=== PATIENT | female | born 1995 | race Caucasian/White ===

== ENCOUNTER 2017-01-09 03:34 | Emergency (ER) | payer SELFPAY ==
[~2017-01-09] VITALS: Ht 175.3 cm; Wt 204.1 kg
[2017-01-09] MEDS ORDERED: IPRATRPIUM/ALBUTEROL 0.5/2.5MG 3 ML NEBU. NEB ONE (04:30)
[2017-01-09] MEDS ORDERED: predniSONE 10 MG TABLET PO ONE (04:30)
[2017-01-09 04:41] VITALS: BP 167/97
[2017-01-09] MEDS ORDERED: PROAIR HFA8.5 GM INH (05:02)
[2017-01-09] MEDS ORDERED: PRED50TA PO (05:03)
--- NOTE | 2017-01-09 05:04 | PHYS DOC ---
Past Medical History Past Medical History: Asthma Past Surgical History: No Surgical History Alcohol Use: Rarely Drug Use: None Adult General Chief Complaint Chief Complaint: SORE THROAT HPI HPI This is a 21-year-old female who states she's had sore throat and sinus type congestion for the last several days and feeling that there is a "lump" in her throat as well. Patient is mildly obese and her mother and states she does not follow up with any physicians due to insurance issues. The mother does state that she has history of asthma but is not currently taking any medications. Patient is hypertensive on arrival. Mother was unaware that the patient had any issues with her blood pressure. Upon arrival, the patient is nontoxic and afebrile in appearance. She denies any significant chest pain or SOB. She denies any abdominal pain, nausea, or vomiting. Review of Systems Review of Systems Constitutional: Denies fever or chills [] Eyes: Denies change in visual acuity, redness, or eye pain [] HENT: Has nasal congestion, has sore throat [] Respiratory: Denies cough or shortness of breath [] Cardiovascular: No additional information not addressed in HPI [] GI: Denies abdominal pain, nausea, vomiting, bloody stools or diarrhea [] : Denies dysuria or hematuria [] Musculoskeletal: Denies back pain or joint pain [] Integument: Denies rash or skin lesions [] Neurologic: Denies headache, focal weakness or sensory changes [] Endocrine: Denies polyuria or polydipsia [] Current Medications Current Medications Current Medications Medications (Trade) Dose Ordered Sig/[facility] Start Time Stop Time Status Last Admin Dose Admin Albuterol/ Ipratropium (Duoneb) 3 ml 1X ONCE 01/09/17 04:30 01/09/17 04:59 DC 01/09/17 04:39 3 ML Prednisone (Prednisone) 50 mg 1X ONCE 01/09/17 04:30 01/09/17 04:59 DC 01/09/17 04:32 50 MG Allergies Allergies Allergies Coded Allergies Type Severity Reaction Last Updated Verified No Known Drug Allergies 01/09/17 No Physical Exam Physical Exam Constitutional: Well developed, well nourished, no acute distress, non-toxic appearance. [] HENT: Normocephalic, atraumatic, bilateral external ears normal, oropharynx moist, no oral exudates, nose normal. [] Eyes: PERRLA, EOMI, conjunctiva normal, no discharge. [] Neck: Normal range of motion, no tenderness, supple, no stridor. [] Cardiovascular:Heart rate regular rhythm, no murmur [] Lungs & Thorax: Bilateral breath sounds clear to auscultation [] Abdomen: Bowel sounds normal, soft, no tenderness, no masses, no pulsatile masses. [] Skin: Warm, dry, no erythema, no rash. [] Back: No tenderness, no CVA tenderness. [] Extremities: No tenderness, no cyanosis, no clubbing, ROM intact, no edema. [] Neurologic: Alert and oriented X 3, normal motor function, normal sensory function, no focal deficits noted. [] Psychologic: Affect normal, judgement normal, mood normal. [] Current Patient Data Vital Signs Vital Signs Date Time Temp Pulse Resp B/P (MAP) Pulse Ox O2 Delivery O2 Flow Rate FiO2 01/09/17 04:37 99 Room Air 01/09/17 03:57 97.9 98 20 220/117 (151) 97.9 EKG EKG [] Radiology/Procedures Radiology/Procedures One view of the chest as interpreted by me did not reveal an acute cardiopulmonary process. Course & Med Decision Making Course & Med Decision Making Pertinent Labs and Imaging studies reviewed. (See chart for details) This is a 21-year-old female who's having pharyngitis type symptoms and had a rapid strep taken that was negative. Patient was given a breathing treatment as well as a dose of oral steroids. I do not see an indication at this time to perform any laboratory workup. I did state the patient should have her blood pressure rechecked in the next several days by her primary care doctor. I'll be prescribing her a pro-air inhaler as well as prednisone for the next 5 days with strict instruction to return if her breathing should worsen despite using her inhaler. Patient was very agreeable with this plan. Primary care follow-up instructions were provided as well as resources for establishing with a primary care doctor. Return precautions were provided and acknowledged by the patient. Dragon Disclaimer Dragon Disclaimer This electronic medical record was generated, in whole or in part, using a voice recognition dictation system. Departure Departure Impression: Primary Impression: Bronchospasm Additional Impression: Sore throat Disposition: HOME, SELF-CARE Admitting Physician: Other Condition: STABLE Referrals: NO PCP (PCP) Patient Instructions: Bronchospasm, Adult Additional Instructions: Please follow up with your primary doctor in the next 2-3 for your sore throat and congestion. Take your steroids and albuterol inhaler as needed. Return to the ER if you develop any worsening of your symptoms or notice any worsening of your symptoms. Scripts Prednisone (PREDNISONE) 50 Mg Tablet 50 MG PO DAILY, #5 TAB Prov: SALVATORE SALCEDO DO 01/09/17 Albuterol Sulfate (PROAIR HFA INHALER) 8.5 Gm Hfa.aer.ad 1 PUFF INH PRN Q6HRS Y for SHORTNESS OF BREATH, #1 INHALER 0 Refills Prov: SALVATORE SALCEDO DO 01/09/17 Problem Qualifiers SALVATORE SALCEDO DO Jan 09, 2017 05:04
--- NOTE | 2017-01-09 07:31 | RAD ---
Indication: Shortness of breath. Time of exam 0429 hours. Comparison is made with prior exam from 06/19/2006. FINDINGS: The heart size is normal. The lungs are clear. No pleural effusion or pneumothorax is identified. The pulmonary vascularity is normal. IMPRESSION: No acute abnormality detected.
== END 2017-01-09 05:17 | disposition home or self-care (01) ==
LOC: ER 03:34
DX: J98.01 Acute bronchospasm (principal); J45.909 Unspecified asthma, uncomplicated; J02.9 Acute pharyngitis, unspecified
CPT/HCPCS: 71010; 94250; 94640; 99283; J7512; J7620

== ENCOUNTER 2017-04-20 15:03 | Emergency (ER) | payer SELFPAY ==
[~2017-04-20] VITALS: Ht 175.3 cm; Wt 195.0 kg
[~2017-04-20 15:03] MED LIST: PRED50TA PO; PROAIR HFA8.5 GM INH
--- NOTE | 2017-04-20 15:38 | EKG ---
[facility] [address] [place] [address] Test Date: 2017-04-20 Test Time: 15:17:59 Pat Name: GAGANDEEP ANN Department: Room: Gender: F Belt Maker: : 1995 Requested By: ANA MARIA VAZQUEZ Order Number: [id number] Reading MD: Tacho Patricia Measurements Intervals [place] Rate: 96 P: 43 MO: 146 QRS: 54 QRSD: 92 T: 25 QT: 330 QTc: 418 Interpretive Statements SINUS RHYTHM Electronically Signed On 04-26-2017 10:15:35 CDT by Tacho Patricia
[2017-04-20] MEDS ORDERED: DEXAMETHASONE 4 MG TABLET PO STA (15:43)
[2017-04-20] MEDS ORDERED: diphenhydrAMINE HCL 25 MG CAPSULE PO ONE (15:45)
[2017-04-20] MEDS ORDERED: LORazepam 1 MG TABLET PO ONE (15:45)
[2017-04-20] MEDS ORDERED: IPRATRPIUM/ALBUTEROL 0.5/2.5MG 3 ML NEBU. NEB ONE (15:45)
--- NOTE | 2017-04-20 15:47 | RAD ---
Portable chest, 04/20/2017: History: Chest pain Comparison is made to a study from 01/09/2017. The heart size and pulmonary vascularity are normal. No pulmonary infiltrates are seen. There is no evidence of pleural fluid. IMPRESSION: No acute cardiopulmonary abnormality is detected.
--- NOTE | 2017-04-20 16:01 | PHYS DOC ---
Past Medical History Past Medical History: Asthma, Sinusitis Past Surgical History: No Surgical History Additional Information: states others in house smoke Alcohol Use: None Drug Use: None Adult General Chief Complaint Chief Complaint: CHEST PAIN HPI HPI Patient is a 21 year old female presenting to the emergency department for evaluation of chest pain that has been going on for 5 days straight. She says the pain is all day every day a heaviness and tightness throughout her entire chest associated with shortness of breath but no nausea vomiting or diaphoresis. She says the tightness can radiate towards her throat but she denies any difficulty swallowing. She says that she does have anxiety and that the sensation is make her quite anxious. She also has asthma. She says she had the same exact symptoms several months ago when she presented to the emergency department and the symptoms got better with breathing treatments and steroids. Review of Systems Review of Systems Constitutional: Denies fever or chills [] HENT: + nasal congestion, sore throat [] Respiratory: + cough, shortness of breath [] Cardiovascular: + CP GI: Denies abdominal pain, nausea, vomiting, bloody stools or diarrhea [] Current Medications Current Medications Current Medications Medications (Trade) Dose Ordered Sig/[facility] Start Time Stop Time Status Last Admin Dose Admin Albuterol/ Ipratropium (Duoneb) 3 ml 1X ONCE 04/20/17 15:45 04/20/17 15:46 DC 04/20/17 16:00 3 ML Dexamethasone (Decadron) 10 mg 1X STAT 04/20/17 15:43 04/20/17 15:46 DC Diphenhydramine HCl (Benadryl) 50 mg 1X ONCE 04/20/17 15:45 04/20/17 15:46 DC Lorazepam (Ativan) 1 mg 1X ONCE 04/20/17 15:45 04/20/17 15:46 DC Allergies Allergies Allergies Coded Allergies Type Severity Reaction Last Updated Verified No Known Drug Allergies 01/09/17 No Physical Exam Physical Exam Constitutional: Well developed, well nourished, no acute distress, non-toxic appearance. [] HENT: Normocephalic, atraumatic, bilateral external ears normal, oropharynx moist, no oral exudates, nose normal. Upper airway exam is very normal with patent airway. Neck: Normal range of motion, no tenderness, supple, no stridor. [] Cardiovascular:Heart rate regular rhythm, no murmur [] Lungs & Thorax: Bilateral breath sounds diminished with expiratory wheezing noted Abdomen: Bowel sounds normal, soft, no tenderness, no masses, no pulsatile masses. [] Current Patient Data Vital Signs Vital Signs Date Time Temp Pulse Resp B/P (MAP) Pulse Ox O2 Delivery O2 Flow Rate FiO2 04/20/17 16:04 98 Room Air 04/20/17 15:24 98.5 96 20 143/83 (103) 98.5 Lab Values Laboratory Tests Test 04/20/17 15:25 POC Urine HCG, Qualitative Hcg negative (Negative) EKG EKG Sinus rhythm at 96 beats per minutes with normal axis no obvious ST elevation or depression and normal T waves. Radiology/Procedures Radiology/Procedures Portable chest, 04/20/2017: History: Chest pain Comparison is made to a study from 01/09/2017. The heart size and pulmonary vascularity are normal. No pulmonary infiltrates are seen. There is no evidence of pleural fluid. IMPRESSION: No acute cardiopulmonary abnormality is detected. DICTATED and SIGNED BY: ALEX MCCORMACK MD DATE: 04/20/17 9818 Course & Med Decision Making Course & Med Decision Making PERC SCORE = 0 Patient looks quite well with normal vital signs. She likely does have bronchospasm which is making her anxious. I do not suspect cardiac etiology dissection pulmonary embolism or other acute cause. Patient was given breathing treatment Decadron Benadryl and Ativan and her symptoms are much improved and she was asking to go home. Given she appears well with normal vital signs benign physical exam and workup she'll be discharged with supportive treatment told to follow with a primary care provider in the next 2- 3 days and come back to the ED sooner with worsening pain shortness of breath or other general concerns. Patient aware and agreeable with plan and verbalized understanding of the above instructions. Dragon Disclaimer Dragon Disclaimer This electronic medical record was generated, in whole or in part, using a voice recognition dictation system. Departure Departure Impression: Primary Impression: Chest pain Additional Impression: Wheezing Disposition: HOME, SELF-CARE Condition: GOOD Referrals: NO PCP (PCP) MARIA VICTORIA DESAI MD Patient Instructions: Chest Pain (Nonspecific) Additional Instructions: USE YOUR ALBUTEROL EVERY 4 HOURS AND MORE OFTEN IF NEEDED. USE OTC NASONEX AND BENADRYL FOR ALLERGY SYMPTOMS. FOLLOW WITH PCP AND/OR CARDIOLOGY AND COME BACK TO THE ED SOONER WITH ANY NEW OR WORSENING SYMPTOMS. THANK YOU! Scripts Lorazepam (ATIVAN) 1 Mg Tablet 1 MG PO BID Y for ANXIETY, #6 TAB Prov: ANA MARIA VAZQUEZ DO 04/20/17 Albuterol Sulfate (PROAIR HFA INHALER) 8.5 Gm Hfa.aer.ad 1 PUFF INH Q4HRS Y for SHORTNESS OF BREATH, #1 INHALER 0 Refills Prov: ANA MARIA VAZQUEZ DO 04/20/17 Problem Qualifiers Primary Impression: Chest pain Chest pain type: unspecified Qualified Codes: R07.9 - Chest pain, unspecified ANA MARIA VAZQUEZ DO Apr 20, 2017 16:01
[2017-04-20] MEDS ORDERED: PROAIR HFA8.5 GM INH (16:13)
[2017-04-20] MEDS ORDERED: LORA-434 PO (16:13)
[2017-04-20] MEDS ORDERED: DEXAMETHASONE SOD PHOS 20 MG/5 ML VIAL. IV ONE (16:30)
[2017-04-20 16:53] VITALS: BP 149/90
== END 2017-04-20 17:06 | disposition home or self-care (01) ==
LOC: ER 15:03
DX: R07.89 Other chest pain (principal); R06.2 Wheezing; R05 Cough; R06.02 Shortness of breath; R09.81 Nasal congestion; J02.9 Acute pharyngitis, unspecified; J45.909 Unspecified asthma, uncomplicated; F41.9 Anxiety disorder, unspecified; Z77.22 Contact with and (suspected) exposure to environmental tobacco smoke (acute) (chronic)
CPT/HCPCS: 71010; 81025; 93005; 94250; 94640; 96374; 96375; 99284; J1100; J2060; J7620; Q0163

== ENCOUNTER 2017-06-26 16:25 | Emergency (ER) | payer SELFPAY ==
[~2017-06-26] VITALS: Ht 175.3 cm; Wt 195.0 kg
[~2017-06-26 16:25] MED LIST changes: +LORA-434 PO
--- NOTE | 2017-06-26 16:56 | PHYS DOC ---
Past Medical History Past Medical History: Asthma, Sinusitis Past Surgical History: No Surgical History Alcohol Use: None Drug Use: None Adult General Chief Complaint Chief Complaint: ASTHMA HPI HPI Patient is a 22 year old female with history of asthma who presents today with shortness of breath and cough which she states is from her asthma that began one to 2 days ago. Patient states she does not have any medical insurance hence not able to buy refills for her albuterol nebulizer treatments. Patient states she does not have money either to see a primary care doctor. Mother states they' re only here in the ED because of lack of nebulizer treatments refill. Review of Systems Review of Systems Constitutional: Denies fever or chills [] Eyes: Denies change in visual acuity, redness, or eye pain [] HENT: Denies nasal congestion or sore throat [] Respiratory: Cough and shortness of breath Cardiovascular: No additional information not addressed in HPI [] GI: Denies abdominal pain, nausea, vomiting, bloody stools or diarrhea [] : Denies dysuria or hematuria [] Musculoskeletal: Denies back pain or joint pain [] Integument: Denies rash or skin lesions [] Neurologic: Denies headache, focal weakness or sensory changes [] All other systems were reviewed and found to be within normal limits, except as documented in this note. Current Medications Current Medications Current Medications Medications (Trade) Dose Ordered Sig/[facility] Start Time Stop Time Status Last Admin Dose Admin Albuterol/ Ipratropium (Duoneb) 3 ml 1X ONCE 06/26/17 17:30 06/26/17 17:31 DC 06/26/17 16:51 3 ML Dexamethasone Sodium Phosphate (Decadron) 10 mg 1X ONCE 06/26/17 17:30 06/26/17 17:31 DC 06/26/17 17:03 10 MG Allergies Allergies Allergies Coded Allergies Type Severity Reaction Last Updated Verified No Known Drug Allergies 01/09/17 No Physical Exam Physical Exam Constitutional: Well developed, well nourished, no acute distress, non-toxic appearance. [] HENT: Normocephalic, atraumatic, bilateral external ears normal, oropharynx moist, no oral exudates, nose normal. [] Eyes: PERRLA, EOMI, conjunctiva normal, no discharge. [] Neck: Normal range of motion, no tenderness, supple, no stridor. [] Cardiovascular:Heart rate regular rhythm, no murmur [] Lungs & Thorax: Diminished breath sounds to posterior lower and upper lung bases , chest feels tight. Abdomen: Bowel sounds normal, soft, no tenderness, no masses, no pulsatile masses. [] Skin: Warm, dry, no erythema, no rash. [] Back: No tenderness, no CVA tenderness. [] Extremities: No tenderness, no cyanosis, no clubbing, ROM intact, no edema. [] Neurologic: Alert and oriented X 3, normal motor function, normal sensory function, no focal deficits noted. [] Psychologic: Affect normal, judgement normal, mood normal. [] Current Patient Data Vital Signs Vital Signs Date Time Temp Pulse Resp B/P (MAP) Pulse Ox O2 Delivery O2 Flow Rate FiO2 06/26/17 16:51 97 Room Air 06/26/17 16:46 98.9 107 20 98.9 EKG EKG [] Radiology/Procedures Radiology/Procedures [] Course & Med Decision Making Course & Med Decision Making Pertinent Labs and Imaging studies reviewed. (See chart for details) This is a 22-year-old female patient with history of asthma presenting today with shortness of breath and a cough from asthma. Patient does not have medical insurance, she states she is not able to see her PCP to get refills for her nebulizer treatments. Chest x-ray interpreted by Dr. Santacruz is negative for any acute findings. Patient's vitals are stable. She was given a DuoNeb treatment as well as Decadron. She states she feels better. She was discharged with prednisone for 4 days and albuterol nebulizer as well as inhaler. I provided a clinic list for follow-up. Dragon Disclaimer Dragon Disclaimer This electronic medical record was generated, in whole or in part, using a voice recognition dictation system. Departure Departure Impression: Primary Impression: Asthma exacerbation Disposition: HOME, SELF-CARE Condition: STABLE Referrals: NO PCP (PCP) follow up in one week Patient Instructions: Asthma, Adult Additional Instructions: You were seen for asthma exacerbation. Use the breathing treatments as well as take prednisone as ordered. Establish care with a primary care doctor and follow-up. Scripts Albuterol Sulfate (ALBUTEROL SULFATE NEB SOLN) 1.25 Mg/3 Ml Vial.neb 1 VIAL NEB Q4HRS, #150 ML 3 Refills Prov: MUTUNGA,LOUANN [facility] COORDINATOR 06/26/17 Prednisone (PREDNISONE) 50 Mg Tablet 1 TAB PO DAILY, #4 TAB Prov: LOUANN RUIZ APRN 06/26/17 Albuterol Sulfate (PROAIR HFA INHALER) 8.5 Gm Hfa.aer.ad 1 PUFF INH PRN Q6HRS Y for SHORTNESS OF BREATH, #1 INHALER 3 Refills Prov: LOUANN RUIZ APRN 06/26/17 Problem Qualifiers Primary Impression: Asthma exacerbation Asthma severity: mild Asthma persistence: intermittent Qualified Codes: J45.21 - Mild intermittent asthma with (acute) exacerbation LOUANN RUIZ APRN Jun 26, 2017 16:56
[2017-06-26] MEDS ORDERED: IPRATRPIUM/ALBUTEROL 0.5/2.5MG 3 ML NEBU. NEB ONE (17:30)
[2017-06-26] MEDS ORDERED: DEXAMETHASONE SOD PHOS 20 MG/5 ML VIAL. IM ONE (17:30)
[2017-06-26 18:00] VITALS: BP 142/78
[2017-06-26] MEDS ORDERED: PROAIR HFA8.5 GM INH (18:11)
[2017-06-26] MEDS ORDERED: ALBU1.25 NEB (18:11)
[2017-06-26] MEDS ORDERED: PRED50TA PO (18:11)
--- NOTE | 2017-06-27 07:25 | RAD ---
PA AND LATERAL CHEST RADIOGRAPH Clinical Indication: cough and shortness of breath x3 weeks. History of asthma Comparison: AP chest 04/20/2017. Findings: The cardiomediastinal silhouette is normal. Pulmonary vasculature is normal. The lungs are clear. No pleural effusion or pneumothorax is seen. There is no acute bone abnormality. IMPRESSION: No acute cardiopulmonary process.
== END 2017-06-26 18:17 | disposition home or self-care (01) ==
LOC: ER 16:25
DX: J45.21 Mild intermittent asthma with (acute) exacerbation (principal)
CPT/HCPCS: 71020; 94250; 94640; 96372; 99284; J1100; J7620